=== PATIENT | female | born 1960 | race Two or more races ===

== ENCOUNTER 2018-07-02 12:47 | Emergency (ER) | payer OTHER ==
[2018-07-02 12:52] VITALS: BMI 24.0
[2018-07-02] MEDS ORDERED: cloNIDine HCL 0.1 MG TABLET PO ONE (14:42)
[2018-07-02] MEDS ORDERED: FUROSEMIDE 40 MG/4 ML INJECTABLE VIAL IVPUSH ONE (14:43)
[2018-07-02] MEDS ORDERED: cloNIDine HCL 0.1 MG TABLET ONE (14:58)
[2018-07-02] MEDS ORDERED: FUROSEMIDE 40 MG/4 ML INJECTABLE VIAL ONE (14:59)
[2018-07-02 15:02] LABS: BASO % 1.2 % (0-2.0); EOS % 0.8 % (0-4.5); HEMATOCRIT 43.2 % (32.4-45.2); HEMOGLOBIN 14.5 GM/dL (10.7-15.3); LYMPH % 30.5 % (8-40); MCH 30.6 pg (25.7-33.7); MCHC 33.6 g/dl (32.0-36.0); MEAN CELL VOLUME 91.1 fl (80-96); MEAN PLT VOLUME 7.6 fl (7.5-11.1); MONO % 6.6 % (3.8-10.2); NEUT % 60.9 % (42.8-82.8); PLATELET COUNT 226 K/MM3 (134-434); RBC 4.74 M/mm3 (3.60-5.2); WHITE BLOOD COUNT 3.4 K/mm3 (4.0-10.0)
[2018-07-02 15:13] LABS: PH,URINE 7.5 (5.0-8.0); URINE APPEARANCE CLEAR; URINE BILIRUBIN NEGATIVE (NEGATIVE); URINE COLOR YELLOW; URINE GLUCOSE (UA) NEGATIVE (NEGATIVE); URINE KETONE NEGATIVE (NEGATIVE); URINE LEUK ESTERASE NEGATIVE (NEGATIVE); URINE NITRITE NEGATIVE (NEGATIVE); URINE PROTEIN NEGATIVE (NEGATIVE); URINE UROBILINOGEN 0.2 mg/dL (0.2-1.0)
[2018-07-02 15:28] LABS: ALBUMIN 4.4 g/dl (3.4-5.0); BILIRUBIN,TOTAL 0.4 mg/dL (0.2-1); CALCIUM 9.7 mg/dL (8.5-10.1); CREATININE 0.9 mg/dL (0.55-1.3); POTASSIUM 3.8 mmol/L (3.5-5.1); TOT PROT 8.8 g/dl (6.4-8.2)
--- NOTE | 2018-07-02 15:43 | PDOC ---
History of Present Illness - General Chief Complaint: Blood Pressure Problem Stated Complaint: HYPERTENSION/ HEADACHE Time Seen by Provider: 07/02/18 13:43 History Source: Patient Exam Limitations: No Limitations - History of Present Illness Initial Comments: 07/02/18 15:47 57-year-old female with history of hypertension presents the mild dizziness and recorded elevated blood pressure at home which was noted to be 160/92. Patient came to the ER since she states when she has these symptoms she normally goes to the emergency room receives to medications including Catapres and thoracic my and then is discharged home. Patient denies chest pain, shortness of breath, lower extremity edema, headache, visual changes, urinary changes or bowel complaints. Patient has an appointment with the clinical nursing director in 2 weeks and was seen by her primary care physician on Thursday with no recent adjustment to medications. Timing/Duration: 1-3 hours Severity: mild Associated Symptoms: reports: other Past History - Travel Traveled outside of the country in the last 30 days: No Close contact w/someone who was outside of country & ill: No - Past Medical History Allergies/Adverse Reactions: Allergies Allergy/AdvReac Type Severity Reaction Status Date / Time aspirin Allergy Verified 07/02/18 14:24 Home Medications: Ambulatory Orders Amlodipine Besylate 10 mg PO DAILY 07/02/18 Hydrochlorothiazide 50 mg PO DAILY 07/02/18 Losartan Potassium 100 mg PO DAILY 07/02/18 COPD: No GI Disorders: Yes HTN: Yes - Suicide/Smoking/Psychosocial Hx Smoking History: Never smoked Information on smoking cessation initiated: No Hx Alcohol Use: No Drug/Substance Use Hx: No Patient Lives Alone: No Lives with/in: spouse/SO Review of Systems - Review of Systems Able to Perform ROS?: No Is the patient limited Mal[place]ian proficient: No Constitutional: No: Symptoms Reported HEENTM: No: Symptoms Reported Respiratory: No: Symptoms reported Cardiac (ROS): Yes: Lightheadedness ABD/GI: No: Symptoms Reported : No: Symptoms Reported Musculoskeletal: No: Symptoms Reported Integumentary: No: Symptoms Reported Neurological: Yes: Dizziness Endocrine: No: Symptoms Reported Hematologic/Lymphatic: No: Symptoms Reported *Physical Exam - Vital Signs Last Vital Signs Temp Pulse Resp BP Pulse Ox 98 F 78 17 166/80 100 07/02/18 12:50 07/02/18 12:50 07/02/18 12:50 07/02/18 12:50 07/02/18 12:50 - Physical Exam General Appearance: Yes: Nourished, Appropriately Dressed. No: Apparent Distress HEENT: positive: EOMI, MICHELLE. negative: Pale Conjunctivae Neck: positive: Supple Respiratory/Chest: positive: Lungs Clear, Normal Breath Sounds. negative: Respiratory Distress, Accessory Muscle Use Cardiovascular: positive: Regular Rhythm, Regular Rate. negative: Murmur Gastrointestinal/Abdominal: positive: Soft. negative: Tenderness Extremity: negative: Pedal Edema Integumentary: positive: Normal Color, Warm, Moist Neurologic: positive: Motor Strength 5/5 (ambulatory) ED Treatment Course - LABORATORY CBC & Chemistry Diagram: 07/02/18 14:52 07/02/18 14:52 - ADDITIONAL ORDERS Additional order review: Laboratory Results 07/02/18 15:06 Urine Color Yellow Urine Appearance Clear Urine pH 7.5 Ur Specific [place] 1.012 Urine Protein Negative Urine Glucose (UA) Negative Urine Ketones Negative Urine Blood Negative Urine Nitrite Negative Urine Bilirubin Negative Urine Urobilinogen 0.2 Ur Leukocyte Esterase Negative 07/02/18 14:52 RBC 4.74 MCV 91.1 MCHC 33.6 RDW 13.0 MPV 7.6 Neutrophils % 60.9 Lymphocytes % 30.5 Monocytes % 6.6 Eosinophils % 0.8 Basophils % 1.2 - Medications Given in the ED: ED Medications Discontinued Medications Generic Name Dose Route Start Last Admin Trade Name Freq PRN Reason Stop Dose Admin Clonidine 0.1 mg 07/02/18 14:42 07/02/18 15:05 Catapres - PO 07/02/18 14:43 0.1 mg ONCE ONE Administration Furosemide 20 mg 07/02/18 14:43 07/02/18 15:05 Lasix Injection - IVPUSH 07/02/18 14:44 20 mg ONCE ONE Administration Medical Decision Making - Medical Decision Making 07/02/18 15:01 Chief complaint: Mild dizziness this morning which resolved but noted elevated blood pressure 1 hour prior to arrival when she took her blood pressure at home. Patient states takes her medication as prescribed with no recent adjustments. Patient states has responded well to Lasix and Catapres in the past 1 she has elevated blood pressure. Exam. Patient with noted blood pressure of 166/92. Heart rate 72 no JVD or lower extremity edema Plan: Labs, IV, EKG, Catapres 0.1 and 20mg of Lasix IV 07/02/18 15:50 Patient ordered for 1 L of normal saline for noted hyponatremia 07/02/18 15:55 Selected Entries 07/02/18 15:50 Temperature 98.5 F Pulse Rhythm [ Regular Right Radial] Respiratory 19 Rate Blood Pressure 127/78 [Left Arm] O2 Sat by Pulse 100 Oximetry (%) Laboratory Tests 07/02/18 07/02/18 07/02/18 14:52 14:52 15:06 WBC 3.4 L Hgb 14.5 Hct 43.2 Absolute Neuts (auto) 2.1 Sodium 128 L Potassium 3.8 Chloride 91 L Carbon Dioxide 33 H Anion Gap 4 L BUN 16 Creatinine 0.9 Random Glucose 124 H Calcium 9.7 Total Bilirubin 0.4 AST 20 ALT 27 Alkaline Phosphatase 104 Total Protein 8.8 H Albumin 4.4 Urine Ketones Negative Urine Bilirubin Negative Urine Urobilinogen 0.2 Patient will be discharged home with recommendations to have a few saltine crackers *DC/Admit/Observation/Transfer Diagnosis at time of Disposition: Hyponatremia, Elevated blood pressure reading - Discharge Dispostion Disposition: HOME Condition at time of disposition: Improved - Referrals Referrals: Gisella Salinas [Primary Care Provider] - - Patient Instructions Printed Discharge Instructions: DI for High Blood Pressure Additional Instructions: Continue taking medication as prescribed but please have some saltine crackers today as your sodium was a little low in the emergency room. Follow-up with your doctor and clinical nursing director - Post Discharge Activity
[2018-07-02 15:50] VITALS: BP 127/78; PULSE 89; TEMP 98.5
--- NOTE | 2018-07-02 16:09 | EKG ---
Test Reason : Blood Pressure : / mmHG Vent. Rate : 072 BPM Atrial Rate : 072 BPM P-R Int : 170 ms QRS Dur : 110 ms QT Int : 402 ms P-R-T Axes : 057 018 024 degrees QTc Int : 440 ms NORMAL SINUS RHYTHM POSSIBLE LEFT ATRIAL ENLARGEMENT INCOMPLETE LEFT BUNDLE BRANCH BLOCK LEFT VENTRICULAR HYPERTROPHY ABNORMAL ECG NO PREVIOUS ECGS AVAILABLE Confirmed by KETTY CANTU MD ([id number]) on 07/02/2018 4:08:44 PM Referred By: Confirmed By:KETTY CANTU MD
== END 2018-07-02 17:34 | disposition home or self-care (01) ==
LOC: JER 12:47
PROC: 3E033GC Introduction of Other Therapeutic Substance into Peripheral Vein, Percutaneous Approach (ICD-10-PCS; principal; 2018-07-02)
DX: E87.1 Hypo-osmolality and hyponatremia (principal); I10 Essential (primary) hypertension
CPT/HCPCS: 36415; 80053; 81003; 85025; 93005; 93010; 96374; 99283-25; J0735

== ENCOUNTER 2018-07-03 15:23 | Emergency (ER) | payer OTHER ==
[2018-07-03 15:39] VITALS: TEMP 98.4; BMI 27.4
[2018-07-03 15:41] VITALS: BP 109/67; PULSE 80
--- NOTE | 2018-07-03 16:39 | PDOC ---
History of Present Illness - General Chief Complaint: Blood Pressure Problem Stated Complaint: HYPERTENSION Time Seen by Provider: 07/03/18 16:07 History Source: Patient, Family Exam Limitations: No Limitations - History of Present Illness Initial Comments: 07/03/18 16:36 57 yo F comes in with her son c/o high blood pressure, it was 140/70 at home then 120/70 but she wants to make sure it is ok. No other complaints todya, no headache, no vision changes, no dizziness, no neck pain, no weakness, no neck pain/stiffness, no chest pain, no SOB, no abdominal pain, no fever/chills, no NVD, no change in appetite, no known sick contacts, no recent travel, no rash. Past History - Past Medical History Allergies/Adverse Reactions: Allergies Allergy/AdvReac Type Severity Reaction Status Date / Time aspirin Allergy Verified 07/03/18 15:33 Home Medications: Ambulatory Orders Amlodipine Besylate 10 mg PO DAILY 07/02/18 Hydrochlorothiazide 50 mg PO DAILY 07/02/18 Losartan Potassium 100 mg PO DAILY 07/02/18 COPD: No GI Disorders: Yes HTN: Yes - Suicide/Smoking/Psychosocial Hx Smoking History: Never smoked Have you smoked in the past 12 months: No Hx Alcohol Use: No Drug/Substance Use Hx: No Review of Systems - Review of Systems Able to Perform ROS?: Yes Constitutional: No: Chills, Fever, Malaise, Night Sweats HEENTM: No: Eye Pain, Recent change in vision, Throat Pain Respiratory: No: Cough, Shortness of Breath Cardiac (ROS): No: Chest Pain, Palpitations, Chest Tightness ABD/GI: No: Diarrhea, Nausea, Vomiting, Abdominal cramping : No: Dysuria, Hematuria Musculoskeletal: No: Back Pain Integumentary: No: Rash Neurological: No: Headache, Numbness, Dizziness Psychiatric: No: Change in Appetite Endocrine: No: Unexplained Weight Loss *Physical Exam - Vital Signs Last Vital Signs Temp Pulse Resp BP Pulse Ox 98.4 F 80 16 109/67 98 07/03/18 15:33 07/03/18 15:39 07/03/18 15:33 07/03/18 15:39 07/03/18 15:33 - Physical Exam General Appearance: Yes: Nourished. No: Apparent Distress HEENT: positive: MICHELLE, Normal ENT Inspection, Normal Voice. negative: Pale Conjunctivae, Scleral Icterus (R), Scleral Icterus (L) Neck: positive: Supple. negative: Decreased range of motion, Tender midline Respiratory/Chest: positive: Lungs Clear, Normal Breath Sounds. negative: Respiratory Distress, Accessory Muscle Use Cardiovascular: positive: Regular Rhythm, Regular Rate Gastrointestinal/Abdominal: positive: Normal Bowel Sounds, Soft. negative: Tender Musculoskeletal: positive: Normal Inspection. negative: CVA Tenderness, Decreased Range of Motion Extremity: positive: Normal Capillary Refill, Normal Inspection, Normal Range of Motion. negative: Tender, Pedal Edema Integumentary: positive: Normal Color, Dry. negative: Jaundice, Rash Neurologic: positive: Fully Oriented, Alert, Normal Mood/Affect Medical Decision Making - Medical Decision Making 07/03/18 16:37 57 yo F w/ feared complaint. BP repeated 120/77. Pt asymptomatic. She will follow up with her PMD Return for worsening/concerning symptoms. Pt verbalizes understanding and agrees with plan *DC/Admit/Observation/Transfer Diagnosis at time of Disposition: Feared complaint without diagnosis - Discharge Dispostion Disposition: HOME Condition at time of disposition: Stable - Referrals - Patient Instructions Printed Discharge Instructions: How to Monitor Your Blood Pressure at Home Additional Instructions: Please follow up with your regular doctor. Return to the ER for worsening/ concerning symptoms. Take all medications as prescribed. Thank you - Post Discharge Activity
== END 2018-07-03 16:40 | disposition home or self-care (01) ==
LOC: JERFT 15:23 → JER 15:23
DX: Z71.1 Person with feared health complaint in whom no diagnosis is made (principal)
CPT/HCPCS: 99281-25